=== PATIENT | female | born 1935 | race Caucasian/White ===

== ENCOUNTER 2016-06-29 12:22 | Emergency (ER) | payer MEDICARE, OTHER ==
[~2016-06-29] VITALS: Ht 167.6 cm; Wt 100.0 kg
[~2016-06-29 12:22] MED LIST: LISI-567 PO; OMEG1CAP56 PO
--- NOTE | 2016-06-29 12:22 | ED.REPORT ---
HPI-Extremity Problem Lower Date of Service Jun 29, 2016 ED Provider: The patient is an 80 year old female with history of thyroid disease and hypertension, who presents to the emergency department by EMS for right leg pain. The patient was getting out of the shower when she slipped, did the "splits" and fell to the ground. At this time she complains of right posterior thigh pain. She did not hit her head or neck, or lose consciousness. She is able to bear some weight with increased pain. She does not feel like she broke any bones. She denies chest pain, shortness of breath, syncope, dizziness, lightheadedness, numbness or weakness. She denies recent illnesses. Nursing Notes Stated Complaint: RIGHT LEG INJURY Chief Complaint: Extremity Trauma Nursing Notes Reviewed: Yes Allergies: Coded Allergies: adhesive tape (Verified Allergy, Severe, took skin off!, 06/29/16) gabapentin (Verified Allergy, Severe, tongue and lip swelling, 06/29/16) hydromorphone HCl (Verified Adverse Reaction, Severe, nausea / vomiting, ) Scheduled Lisinopril (Lisinopril) 20 Mg Tablet 20 MG PO HS [place]-3 Fatty Acids/Fish Oil ([place] 3 1,000 mg Softgel) 1 Each Capsule 1 EACH PO DAILY General Time Seen by MD: 12:22 Chief Complaint Leg injury right Hx Obtained From: Patient, EMS Arrived By: Ambulance Onset Occurred: Just prior to arrival Symptom Duration: Since onset Caused by: Accidental, Fall on ground Context: Occurred at: Home injury Location: : Leg right Quality: Painful Severity: Current: Moderate Severity: Maximum: Severe Pertinent Negative: Pt denies other symptoms Recent Healthcare: No recent doctor visit, No recent hospitalization Similar Sx Previous: No Past Medical History Past Medical History Thyroid disease Hypertension Reccurent UTIs Breast cancer Past Surgical History Cataract surgery Lumpectomy Hysterectomy Cholecystectomy T&A Right total knee replacement Family History Noncontributory Smoking History Former Smoker (quit in 1959) Social History Alcohol Use: Denies alcohol use Drug Use: Denies drug use Other Social History: Good social support, , Local resident Ambulatory Status Independent Review of Systems Constitutional: Denies: Chills, Fever Musculoskeletal: Reports: Extremity pain, Denies: Neck pain Neurologic: Denies: Change LOC, Dizziness, Focal weakness, Headache, Lightheaded, Numbness, Syncope Complete sys rev & neg: except as marked. Ears / Nose / Throat: Denies: Nasal congestion Respiratory: Denies: Non-productive cough, Shortness of breath Cardiovascular: Denies: Chest pain GI: Denies: Diarrhea, Nausea, Vomiting Physical Exam Initial Vital Signs Vital Signs (First) Date Time Temp Pulse Resp B/P Pulse Ox O2 Delivery O2 Flow Rate FiO2 06/29/16 12:24 36.9 89 16 155/79 99 Room Air Initial VS: Reviewed Head / Eyes: Atraumatic, Normocephalic, PERRL ENT: Mucous membranes moist, Conjunctiva normal, No scleral icterus Neck: Supple, Non-tender, Full range of motion Respiratory: No respiratory distress Abdomen / GI: Soft, No distention Lymphatic: No lymphadenopathy Upper Extremities: Vascular intact, Neuro intact, No swelling, No tenderness Skin: Warm, Dry, No cyanosis Neurologic: Alert, Oriented, Nonfocal Psychiatric: Mood/affect normal, Behavior normal, Normal thought content Lower Extremity / Pelvis / MS: No deformity, Neurologic intact, Vascular intact Extreme pain with flexion of the right hip. Ankle / Foot: No deformity, Neurologic intact, Vascular intact Cardiovascular: Heart rate NL Back: Non-tender, No midline vertebral tend Re-Eval/Medical Decision Source of Hx: Old records, EMS Re-Evaluation/Progress #1: Time of Eval: 13:45 Re-Evaluation/Progress Note: The patient was able to ambulate around the department with minimal pain. Re-Evaluation/Progress #2: Time of Eval: 13:57 Re-Evaluation/Progress Note: Rechecked the patient. Her pain is improved. Discussed plan for discharge. All questions were addressed. Counseled Regarding: Diagnosis, Need for follow-up, When/why to return to ED Discharge & Departure Impression: Primary Impression: Fall Encounter type: initial encounter Qualified Code: W19.XXXA - Unspecified fall, initial encounter Additional Impression: Right hamstring injury Encounter type: initial encounter Qualified Code: S76.301A - Unspecified injury of muscle, fascia and tendon of the posterior muscle group at thigh level , right thigh, initial encounter Disposition: Home Discharge Condition All VS Reviewed: Yes Condition: Stable Patient Instructions: Hamstring Injury (ED) Additional Instructions: Thank you for entrusting us with your care today. I do not believe you need x- rays today. Take ibuprofen 400 mg every 8 hours. You can take cyclobenzaprine as needed for pain/muscle spasm for the next few days. You can also try applying ice to the painful areas if that helps. If your pain is not improved in the next few days you should be re-evaluated. You can see your regular doctor or an orthopedist. We have given you a referral to Dr. Contreras. Please return to the emergency department for any new or concerning symptoms. Referrals: Xiao Hung MD (PCP) Vaz[facility] Contreras Attestation Portions of this note were transcribed by Marianne Knight. I, Dr. Huber personally performed the history, physical exam and medical decision-making; I reviewed and confirmed the accuracy of the information in the transcribed note. Signed by: Pete Mike, 06/29/2016 and 1410. copies to: Xiao Hung MD; Vazquez Contreras Kirk H MD Jun 29, 2016 12:22 Marianne Knight Jun 29, 2016 12:29
[2016-06-29 12:24] VITALS: BP 155/79; PULSE 89; RESP 16; O2SAT 99
[2016-06-29] MEDS ORDERED: CYCL10TA9 PO (14:31)
[2016-06-29 14:55] VITALS: BP 155/79; PULSE 89; RESP 16; O2SAT 99
== END 2016-06-29 14:50 | disposition home or self-care (01) ==
LOC: SED 12:22
DX: S76.301A Unspecified injury of muscle, fascia and tendon of the posterior muscle group at thigh level, right thigh, initial encounter (principal); W01.0XXA Fall on same level from slipping, tripping and stumbling without subsequent striking against object, initial encounter; Y93.E9 Activity, other interior property and clothing maintenance; Y92.009 Unspecified place in unspecified non-institutional (private) residence as the place of occurrence of the external cause; Y99.8 Other external cause status; I10 Essential (primary) hypertension; E07.9 Disorder of thyroid, unspecified; Z96.651 Presence of right artificial knee joint; Z87.891 Personal history of nicotine dependence; Z88.5 Allergy status to narcotic agent; Z88.8 Allergy status to other drugs, medicaments and biological substances